=== PATIENT | female | born 1975 | race Caucasian/White ===

== ENCOUNTER → 2021-03-18 | Outpatient (CLI) | payer OTHER | LOC: KOH-I 11:30 | DX: R19.00 Intra-abdominal and pelvic swelling, mass and lump, unspecified site (principal); N20.0 Calculus of kidney | CPT/HCPCS: 74176 ==

== ENCOUNTER → 2021-03-25 | Outpatient (CLI) | payer OTHER | LOC: US 08:00 | DX: R10.11 Right upper quadrant pain (principal); R19.00 Intra-abdominal and pelvic swelling, mass and lump, unspecified site; K76.0 Fatty (change of) liver, not elsewhere classified | CPT/HCPCS: 76705 ==